=== PATIENT | female | born 1995 | race Caucasian/White ===

== ENCOUNTER 2023-09-19 13:25 | Outpatient (RCR) | payer BC, SELFPAY ==
--- NOTE | 2023-11-06 11:50 | ONC.NURNOTE ---
Late entry--Patient called by Dr. Velasquez after MRI and given results. Patient to have a repeat due to issues with mastitis. Patient wants to get again so is not sure she will repeat it but will keep us updated
--- NOTE | 2023-12-05 16:20 | ONC.NURNOTE ---
Addendum entered by [place] 12/14/23 11:38: Patient informed that Dr. Velasquez recommends follow up MRI be done in March. Orders entered. Patient will cancel if she becomes . Original Note: Patient called to discuss follow up breast imaging. Patient states she saw a breast specialist at [facility] in October. They diagnosed her with costochondritis and prescribed Naproxen. Cami states this helped but did not take the pain away. The end of October, Cami started to wean her baby from breast feeding. A week later she ended up in the ER with mastitis. She was given an Rx for antibiotics which will finish around 12/07. Cami wants to schedule a follow up MRI now that she is almost done breast feeding. I shared with her that the recommendation from the radiologist was 6 month follow up, which would be March. She is concerned about waiting because they are hoping to get again soon. I assured her that I would review with Dr. Velasquez and get back to her with recommendations.
--- NOTE | 2024-03-11 14:13 | ONC.NURNOTE ---
Pt called updating that she is and due ~ 08/2024. She has a breast mri scheduled 03/24 to f/u breast pain from visit/MRI ~ 09/2023. Pt notes that she was seen at [place] for persistent breast pain ~10/2023; diagnosed with Costochondritis. Pain fully resolved after ceasing , ~november. Pt unsure if she will breastfeed this baby. She will plan to call us ~ 09/2024 after baby is born to be set up for her next Breast MRI and f/u appt.
== END 2024-03-17 23:59 | disposition home or self-care (01) ==
LOC: CCIC 13:25
PROVIDERS: Visit Provider Internal Medicine Hematology & Oncology
DX: C43.59 Malignant melanoma of other part of trunk (principal); N64.4 Mastodynia; Z91.89 Other specified personal risk factors, not elsewhere classified; F40.240 Claustrophobia; Z91.041 Radiographic dye allergy status; Z80.3 Family history of malignant neoplasm of breast; Z80.42 Family history of malignant neoplasm of prostate
CPT/HCPCS: 77049; 99214; 99215; G0463; A9575

== ENCOUNTER 2025-08-03 07:02 | Outpatient (CLI) | payer BC, SELFPAY ==
--- NOTE | 2025-08-03 07:15 | CRLHL7_ITS ---
For Patients: As a result of the Century Cures Act, medical imaging exams and procedure reports are released immediately into your electronic medical record. You may view this report before your referring provider. If you have questions, please contact your health care provider. BILATERAL BREAST MRI WITHOUT AND WITH GADOLINIUM CLINICAL HISTORY: Stated to be at increased risk for breast cancer due to family history of breast cancer in her paternal grandmother and paternal aunt (ages not provided with history). Benign ultrasound-guided RIGHT breast biopsy in 2019. Breast MRI in September 2023 showed diffuse abnormal edema and enhancement of the LEFT breast. Follow-up imaging was recommended at that time. INDICATION FOR BREAST MRI: High-risk screening breast MRI. COMPARISON STUDIES: Breast MRI 09/19/2023 and 12/03/2020. There are no mammograms available for comparison. CONTRAST: 14 mL IV Dotarem. TECHNIQUE: The patient was positioned prone using a breast coil. Multiple imaging sequences were obtained using 1-1.5 mm thick slices with no gap. The image sequences include T2-weighted STIR in the axial plane, T1-weighted nonfat-saturated gradient echo in the axial plane, pre- and post-contrast T1-weighted FLASH 3D with fat suppression in the axial plane, and T1-weighted FLASH high resolution 3D with fat suppression in the sagittal plane. Image post-processing was performed on a [employer] workstation. Complex 3D rendering including maximum intensity projections (MIPS) and volumetric renderings were obtained to optimize visualization of the extent of pathology and relationship to the nipple, skin, and chest wall. This aids in determining feasibility of breast conservation surgery. Subtraction, multiplanar reconstruction, mean curve determination, and angiogenesis mapping were also performed. The study was technically adequate. FINDINGS: Amount of Fibroglandular Tissue: Scattered fibroglandular tissue. Breast Background Enhancement: Minimal. RIGHT Breast: There is no suspicious mass or non-mass enhancement. LEFT Breast: There is no suspicious mass or non-mass enhancement. Lymph Nodes: No abnormal morphology lymph nodes. IMPRESSIONS AND RECOMMENDATIONS: 1. No MRI evidence of malignancy in either breast. 2. Recommend appropriate breast cancer screening based on family history/risk factors. If continued MRI screening is recommended based on risk factors than screening mammograms are also recommended at this time. BI-RADS Category 1: Negative Dictated by Montserrat Jack MD @ 08/03/2025 1:34:25 PM barbara/Dictated by: Montserrat Jack MD @ 08/03/2025 1:34:00 PM (Electronically Signed)
== END 2025-08-03 07:03 | disposition home or self-care (01) ==
LOC: MRI 07:03
PROVIDERS: Visit Provider Internal Medicine Hematology & Oncology
DX: Z12.39 Encounter for other screening for malignant neoplasm of breast (principal); Z91.89 Other specified personal risk factors, not elsewhere classified
CPT/HCPCS: 77049; A9575